=== PATIENT | female | born 1970 | race Hispanic/Latino ===

== ENCOUNTER 2017-10-22 10:37 | Emergency (ER) | payer OTHER ==
[2017-10-22 11:17] VITALS: BP 123/54; PULSE 63; RESP 18; TEMP 97; O2SAT 100
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
== END 2017-10-22 16:08 | disposition home or self-care (01) ==
LOC: H.ER 10:37
DX: M54.12 Radiculopathy, cervical region (principal)